=== PATIENT | female | born 1950 | race Caucasian/White ===

== ENCOUNTER → 2017-03-10 | Outpatient (CLI) | payer BC, OTHER ==
[~2017-03-10] MED LIST: ACETAMINOPHEN1 EAC2 PO; AUGMENTIN875 MG PO; DUONEB 2.5-0.5 M3 ML IH; MOTRIN800 MG PO; PAXIL40 MG PO; ST. JOSEPH ASPI81 MG PO
== END | disposition home or self-care (01) ==
DX: M17.12 Unilateral primary osteoarthritis, left knee (principal); R26.2 Difficulty in walking, not elsewhere classified; M25.562 Pain in left knee; M25.662 Stiffness of left knee, not elsewhere classified; M62.81 Muscle weakness (generalized)
CPT/HCPCS: 97110 GP; 97150 GO; 97161 GP; 97165 GO; G8978 GP; G8979 GP; G8980 GP; G8984 GO; G8985 GO; G8986 GO

== ENCOUNTER 2017-03-31 06:52 | Inpatient (IN) | payer BC, OTHER ==
[~2017-03-31] VITALS: Ht 154.9 cm; Wt 72.5 kg
[~2017-03-31 06:52] MED LIST changes: +CELEBREX200 MG PO; +CYMBALTA30 MG PO; +ULTRAM50 MG PO
[2017-03-31 07:24] VITALS: BP 158/79
[2017-03-31 13:28] VITALS: BP 138/65
[2017-03-31 15:59] VITALS: BP 151/61
[2017-03-31 20:18] VITALS: BP 141/76
[2017-04-01 00:20] VITALS: BP 164/73
[2017-04-01 04:10] VITALS: BP 141/88
[2017-04-01 06:10] LABS: HEMATOCRIT 36.8 % (36.0-46.0); MCV 92.5 FL (83-99)
[2017-04-01 06:40] LABS: ANION GAP 6 MEQ/L (2-14); CHLORIDE 104 MEQ/L (99-109); GFR ESTIMATE (CALCULATED) > 59 mL/min/; GLUCOSE 115 mg/dL (70-99); POTASSIUM 4.3 MEQ/L (3.7-5.4); SAMPLE HEMOLYSIS CHECK 0; SAMPLE ICTERIC CHECK 0; SAMPLE LIPEMIA CHECK 0; SODIUM 137 MEQ/L (136-147); UREA NITROGEN (BUN) 13 mg/dL (9-23)
[2017-04-01 08:00] VITALS: BP 166/72
[2017-04-01 11:41] VITALS: BP 181/79
[2017-04-01 15:45] VITALS: BP 180/79
[2017-04-01 19:57] VITALS: BP 167/92
[2017-04-02 00:20] VITALS: BP 151/89
[2017-04-02 04:15] VITALS: BP 160/76
[2017-04-02 05:47] LABS: HEMATOCRIT 35.2 % (36.0-46.0); MCV 90.7 FL (83-99)
[2017-04-02 07:48] VITALS: BP 139/88
[2017-04-02] MEDS ORDERED: SENNA PLUS TAB1 EACH PO (09:02)
[2017-04-02] MEDS ORDERED: ENDOCET 5-3251 EACH PO (09:03)
[2017-04-02] MEDS ORDERED: ELIQUIS2.5 MG PO (09:03)
[2017-04-02 12:10] VITALS: BP 142/71
== END 2017-04-02 13:59 | DRG 470 ==
LOC: 2SOUTH 06:52 → 3WEST 13:12 → 2SOUTH 15:09 → 3WEST 04-02 13:59
PROVIDERS: Orthopaedic Surgery
PROC: 0SRD0J9 Replacement of Left Knee Joint with Synthetic Substitute, Cemented, Open Approach (ICD-10-PCS; principal; 2017-03-31)
DX: M17.12 Unilateral primary osteoarthritis, left knee (principal); F17.210 Nicotine dependence, cigarettes, uncomplicated; M54.2 Cervicalgia; M54.9 Dorsalgia, unspecified; F32.9 Major depressive disorder, single episode, unspecified; R42 Dizziness and giddiness; Z82.49 Family history of ischemic heart disease and other diseases of the circulatory system
CPT/HCPCS: 80048; 85014; 85018; C1713; J0690; J1885; J2405; J7050; J7120

== ENCOUNTER 2017-10-29 10:13 | Emergency (ER) | payer BC, OTHER ==
[~2017-10-29] VITALS: Ht 154.9 cm; Wt 60.9 kg
[~2017-10-29 10:13] MED LIST changes: +ELIQUIS2.5 MG PO; +ENDOCET 5-3251 EACH PO; +SENNA PLUS TAB1 EACH PO
[2017-10-29 11:12] LABS: APPEARANCE SL.HAZY ((CLEAR)); BILIRUBIN NEGATIVE; BLOOD NEGATIVE; COLOR YELLOW ((YELLOW)); GLUCOSE (STRIP) NEGATIVE; KETONES NEGATIVE; LEUKOCYTES TRACE; NITRITE NEGATIVE; PROTEIN (STRIP) 30; SPECIFIC GRAVITY 1.016 (1.000-1.030); UROBILINOGEN 0.2 MG/DL (0.2-1.0)
[2017-10-29 11:20] LABS: HEMATOCRIT 45.7 % (36.0-46.0); MCH 30.8 PG (29.0-34.0); MCV 88.1 FL (83-99); PLATELET COUNT 161 K/uL (156-360); RBC DIS.WIDTH-CV 11.6 % (11.8-14.6); RBC DIS.WIDTH-SD 37.4 % (39-53); RED BLOOD COUNT 5.19 M/uL (3.80-5.20); WHITE BLOOD COUNT 3.2 K/uL (4.1-10.2)
[2017-10-29 11:21] LABS: BACTERIA 2+ /HPF; EPITHELIAL CELLS 2+ /HPF; HYALINE CASTS TNTC /LPF; MUCUS 2+ /LPF; RED BLOOD CELLS 0-5 /HPF (0-5); UCUL ADDED? YES
[2017-10-29 11:32] LABS: CHLORIDE 100 mEq/L (99-109); POTASSIUM 3.3 mEq/L (3.7-5.4); SODIUM 134 mEq/L (136-147)
[2017-10-29 11:33] LABS: GLUCOSE 97 mg/dL (70-99)
[2017-10-29 11:37] LABS: CREATININE 0.8 mg/dL (0.6-1.3); GFR ESTIMATE (CALCULATED) > 59 mL/min/
[2017-10-29 11:38] LABS: UREA NITROGEN (BUN) 11 mg/dL (9-23)
[2017-10-29] MEDS ORDERED: ZOFRAN ODT4 MG PO (13:37)
[2017-10-29] MEDS ORDERED: BACTRIM,SEPT1 TABLET PO (13:37)
[2017-10-29] MEDS ORDERED: VENTOLIN HFA18 GM IH (14:37)
[2017-10-29 14:43] VITALS: BP 125/79
== END 2017-10-29 14:45 | disposition home or self-care (01) ==
LOC: EME 10:13
DX: R19.7 Diarrhea, unspecified (principal); R11.2 Nausea with vomiting, unspecified; E86.0 Dehydration; N39.0 Urinary tract infection, site not specified; F17.200 Nicotine dependence, unspecified, uncomplicated; Z86.73 Personal history of transient ischemic attack (TIA), and cerebral infarction without residual deficits; F32.9 Major depressive disorder, single episode, unspecified; F41.9 Anxiety disorder, unspecified; Z88.5 Allergy status to narcotic agent
CPT/HCPCS: 80048; 81003; 85027; 87086; 94640; 99281; 99284; J1885; J2405; J7030